=== PATIENT | male | born 1995 | race Caucasian/White ===

== ENCOUNTER 2018-07-08 18:52 | Inpatient (IN) ==
[2018-07-08] MEDS ORDERED: SODIUM CHLORIDE 0.9% 1,000 ML IV STA (19:17)
[2018-07-08] MEDS ORDERED: ONDANSETRON 4 MG/2 ML VIAL IV STA (19:17)
[2018-07-08 19:35] LABS: Basophils % 0.3 % (0.0-0.8); Eosinophils # 0.4 10*3/uL (0.0-0.87); Eosinophils % 3.6 % (0.00-10.9); Hematocrit 47.5 VOL% (42.0-52.0); Hemoglobin 15.6 GM/DL (14.0-18.0); Immature Granulocytes % 0.3 %; Immature Granulocytes Absolute 0.03 #; Lymphocytes # 3.4 10*3/uL (1.4-4.0); Lymphocytes % 32.4 % (21.2-54.2); Mean Corpuscular HGB Conc 32.8 GM/DL (32-36); Mean Corpuscular Volume 94.8 FL (87-102); Monocytes % 11.8 % (1.7-12.7); Neutrophils % 51.6 % (38.7-73.9); Platelet Count 181 T/CUMM (130-400); Red Blood Count 5.01 MC/CUMM (3.8-5.5); Red Cell Distribution Width 13.1 % (9.3-17.3); White Blood Count 10.6 T/CUMM (4-12)
[2018-07-08 19:52] LABS: Apearance,Urine CLEAR (Clear); Bilirubin,Urine Negative (Negative); Blood, Urine Negative (Negative); Glucose,Urine (UA) Negative (Negative); Ketones,Urine 5 mg/dL (Negative); Mucus,Urine Occasional /LPF (Occasional); Nitrite,Urine Negative (Negative); Protein,Urine Negative; RBC,Urine <1 /HPF (0-4); Urine Color Yellow (Yellow); Urine Specific Gravity 1.025 (1.001-1.035); Urine Urobilinogen < 2.0 EU/DL (0.2-1.0); WBC,Urine <1 /HPF (0-6)
[2018-07-08 19:59] LABS: Albumin 4.5 G/DL (3.4-5.0); Bilirubin,Total 0.6 MG/DL (0.2-1.0); Calcium 9.5 MG/DL (8.5-10.1); Osmolality,Calculated 278.5 MOS/KG (273-304); Total Protein 7.4 G/DL (6.4-8.3)
[2018-07-08 20:04] LABS: Barbiturates Screen,Urine Negative (Negative); Benzodiazepines Screen,Urine Negative (Negative); Cannabinoid Screen,Urine Positive (Negative); Opiate Screen,Urine Negative (Negative); Phencyclidine Screen,Urine Negative (Negative)
[2018-07-08] MEDS ORDERED: MORPHINE 4 MG/1 ML VIAL IV PRN (21:21)
[2018-07-08] MEDS ORDERED: ONDANSETRON 4 MG/2 ML VIAL IV PRN (21:21)
[2018-07-08] MEDS: DEXTROSE 5% NACL 0.45% 1,000 ML IV SCH (22:00)
[2018-07-09] MEDS: PIPERACILLIN/TAZOBACTAM 3,375 MG in SODIUM CHLORIDE 0.9% 100 ML IV SCH ×2 (01:19→11:34)
[2018-07-09 03:09] LABS: Basophils % 0.4 % (0.0-0.8); Eosinophils # 0.4 10*3/uL (0.0-0.87); Eosinophils % 3.9 % (0.00-10.9); Hematocrit 42.5 VOL% (42.0-52.0); Hemoglobin 14.2 GM/DL (14.0-18.0); Immature Granulocytes % 0.4 %; Immature Granulocytes Absolute 0.04 #; Lymphocytes # 3.8 10*3/uL (1.4-4.0); Lymphocytes % 39.9 % (21.2-54.2); Mean Corpuscular HGB Conc 33.4 GM/DL (32-36); Mean Platelet Volume 10.3 FL (9.6-12.0); Monocytes % 12.6 % (1.7-12.7); Neutrophils % 42.8 % (38.7-73.9); Platelet Count 189 T/CUMM (130-400); Red Blood Count 4.52 MC/CUMM (3.8-5.5); Red Cell Distribution Width 13.1 % (9.3-17.3); White Blood Count 9.5 T/CUMM (4-12)
[2018-07-09 03:36] LABS: Calcium 8.8 MG/DL (8.5-10.1)
[2018-07-09] MEDS ORDERED: cefOXitin 2,000 MG in SYRINGE 1 EACH IV ONE (07:30)
[2018-07-09] MEDS ORDERED: BUPIVACAINE 0.25% /EPI 10 ML VIAL ONE (07:45)
[2018-07-09] MEDS ORDERED: LIDOCAINE 1%/EPI INJ 20 ML VIAL ONE (07:45)
[2018-07-09] MEDS ORDERED: TISSUE ADHESIVE 1 EACH APPLICATOR TOP ONE (07:46)
[2018-07-09] MEDS ORDERED: PANTOPRAZOLE 40 MG TABLET PO SCH (09:00)
[2018-07-09] MEDS ORDERED: SUGAMMADEX 200 MG/2 ML VIAL IV ONE (09:45)
[2018-07-09] MEDS ORDERED: ONDANSETRON 4 MG/2 ML VIAL ONE ×2 (09:50→09:54)
[2018-07-09] MEDS ORDERED: HYDROmorphone 2 MG/1 ML VIAL ONE ×2 (09:50→10:13)
[2018-07-09] MEDS ORDERED: ONDANSETRON 4 MG/2 ML VIAL IV PRN (09:51)
[2018-07-09] MEDS ORDERED: MEPERIDINE 25 MG/1 ML VIAL IV PRN (09:54)
[2018-07-09] MEDS ORDERED: GLYCOPYRROLATE 0.4 MG/2 ML VIAL ONE (09:54)
[2018-07-09] MEDS ORDERED: PROPOFOL 200 MG/20 ML VIAL IV ONE (09:54)
[2018-07-09] MEDS ORDERED: MIDAZOLAM 2 MG/2 ML VIAL ONE (09:54)
[2018-07-09] MEDS ORDERED: SEVOFLURANE 1 UNIT/15 MINUTE INH ONE (09:54)
[2018-07-09] MEDS ORDERED: MEPERIDINE 25 MG/1 ML VIAL ONE (09:54)
[2018-07-09] MEDS ORDERED: fentaNYL 100 MCG/2 ML VIAL ONE (09:54)
[2018-07-09] MEDS ORDERED: ROCURONIUM 100 MG/10 ML VIAL IV ONE (09:55)
[2018-07-09] MEDS ORDERED: SUCCINYLCHOLINE 200 MG/10 ML VIAL ONE (09:55)
[2018-07-09] MEDS ORDERED: ACETAMINOPHEN 1,000 MG/100 ML VIAL IV ONE (09:55)
[2018-07-09] MEDS ORDERED: NEOSTIGMINE 10 MG/10 ML VIAL ONE (09:55)
[2018-07-09] MEDS ORDERED: HYDROmorphone 2 MG/1 ML VIAL IV PRN (10:15)
[2018-07-09] MEDS ORDERED: PROMETHAZINE 25 MG/1 ML VIAL IM PRN (10:41)
[2018-07-09] MEDS: LACTATED RINGERS 1,000 ML IV SCH ×2 (10:55→19:28)
[2018-07-09] MEDS: DEXTROSE 5% NACL 0.45% 1,000 ML IV SCH (11:33)
[2018-07-09 16:43] VITALS: BP 102/68
== END 2018-07-09 19:25 | disposition home or self-care (01) | DRG 340 ==
LOC: N.ED 18:52 → N.EDINP 20:45 → N.5E 21:21
PROVIDERS: ADMIT Surgery; ATTEND Surgery